=== PATIENT | female | born 1950 | race Caucasian/White ===

== ENCOUNTER → 2017-01-28 | Outpatient (CLI) | payer BC, MEDICARE | END | disposition home or self-care (01) | LOC: LABPAT 14:18 | PROVIDERS: ATTEND Orthopaedic Surgery Sports Medicine | DX: Z01.812 Encounter for preprocedural laboratory examination (principal) | CPT/HCPCS: 87070 ==

== ENCOUNTER → 2017-02-03 | Outpatient (CLI) | payer BC, MEDICARE ==
[2017-02-03 11:24] LABS: EKG EKG PERFORMED
[2017-02-03 11:53] LABS: Basophils % (A) 0 %; CH 31.3; CHCM 34.1; Eosinophils # (A) 0.1 k/uL (0-0.7); Eosinophils % (A) 2 %; HCT 41.3 % (34.0-46.0); HDW 2.63; HGB 13.6 gm/dL (11.4-16.0); Luc # (Auto) 0.13; Luc % (Auto) 3; Lymphocytes % (A) 23 %; MCH 30.4 pg (25.0-35.0); MCV 92.2 fL (80.0-100.0); Mean Platelet Volume 7.4; Monocytes # (A) 0.3 k/uL (0-1.0); Monocytes % (A) 8 %; Neutrophils # (A) 2.7 k/uL (1.3-7.7); Neutrophils % (A) 64 %; RBC 4.48 m/uL (3.80-5.40); RDW 12.3 % (11.5-15.5); WBC 4.3 k/uL (3.8-10.6); WBC (Perox) 4.32
[2017-02-03 12:05] LABS: ALT 33 U/L (9-52); AST 23 U/L (14-36); Alkaline Phosphatase 94 U/L (38-126); Anion Gap 11 mmol/L; Blood Urea Nitrogen 15 mg/dL (7-17); Calcium 10.4 mg/dL (8.4-10.2); Carbon Dioxide 28 mmol/L (22-30); Chloride 103 mmol/L (98-107); Glucose 111 mg/dL (74-99); Non-African American GFR(MDRD) >60 (>60 ml/min/1.73 sqM); Potassium 4.5 mmol/L (3.5-5.1); Sodium 142 mmol/L (137-145); Total Bilirubin 0.4 mg/dL (0.2-1.3); Total Protein 7.4 g/dL (6.3-8.2)
[2017-02-03 12:17] LABS: Appearance,Urine Clear (Clear); Bilirubin,Urine Negative (Negative); Glucose,Urine (UA) Negative (Negative); Ketones,Urine Negative (Negative); Leukocyte Esterase,Urine Trace (Negative); Mucus,Urine Rare /hpf; Nitrite,Urine Negative (Negative); PH, Urine 5.5 (5.0-8.0); Particle Count 1172; Protein,Urine Negative (Negative); Specific Gravity,Urine 1.012 (1.001-1.035); Squamous Epithelial Cell,Urine <1 /hpf (0-4); UA Billing (MACRO vs. MICRO) MICRO; Urobilinogen,Urine <2.0 mg/dL (<2.0); WBC,Urine 2 /hpf (0-5)
[2017-02-03 12:21] LABS: Partial Thromboplastin Time 24.6 sec (22.0-30.0); Prothrombin Time 10.3 sec (9.0-12.0)
== END | disposition home or self-care (01) ==
LOC: LABPAT 11:15
PROVIDERS: ATTEND Orthopaedic Surgery Sports Medicine
DX: Z01.818 Encounter for other preprocedural examination (principal)
CPT/HCPCS: 31623; 31624; 80053; 81001; 85025; 85610; 85730; 87070; 87077; 87102; 87116; 87186; 87205; 87206; 87252; 87496; 87498; 87502; 87529; 87798; 88104; 88108; 88305; 93005; 94640

== ENCOUNTER 2017-02-11 07:49 | Inpatient (IN) | payer BC, MEDICARE ==
[2017-02-03 15:24] VITALS: BMI 23.1
[~2017-02-11 07:49] MED LIST: ACETAMINOPHEN TAB 500 MG TAB PO ONE; DEXAMETHASONE SOD PHOSPHATE 10 MG/ML 1 ML VIAL IV ONE; HYDROmorphone 1 MG/ML 1 ML SYRINGE IVP PRN; MELOXICAM 7.5 MG TAB PO ONE; ONDANSETRON 4 MG/2 ML VIAL IVP ONE; TRANEXAMIC ACID 1,000 MG in SODIUM CHLORIDE 0.9% 100 ML IVPB ONE; ceFAZolin 2 GM in SODIUM CHLORIDE 0.9% 100 ML IVPB ONE
[2017-02-11] MEDS ORDERED: ROPIVACAINE 246.25 MG, EPINEPHrine 0.5 MG, KETOROLAC 30 MG, cloNIDine HCL/PF 80 MCG, WA... MISCELLANE ONE ×5 (08:59)
[2017-02-11] MEDS ORDERED: LIDOCAINE 1% 20 ML VIAL (10MG/ML) FOR IV START INTRADERMA ONE (12:22)
[2017-02-11] MEDS: LACTATED RINGERS 1,000 ML IV SCH ×3 (12:22→21:41)
[2017-02-11 12:23] LABS: Glucose,Whole Blood 103 mg/dL (75-99)
[2017-02-11 12:55] LABS: Appearance,Urine Cloudy (Clear); Bilirubin,Urine Negative (Negative); Glucose,Urine (UA) Negative (Negative); Ketones,Urine Negative (Negative); Leukocyte Esterase,Urine Moderate (Negative); Mucus,Urine Rare /hpf; Nitrite,Urine Negative (Negative); PH, Urine 6.5 (5.0-8.0); Particle Count 1825; Protein,Urine Negative (Negative); RBC,Urine 1 /hpf (0-5); Specific Gravity,Urine 1.015 (1.001-1.035); Squamous Epithelial Cell,Urine 3 /hpf (0-4); UA Billing (MACRO vs. MICRO) MICRO; Urobilinogen,Urine <2.0 mg/dL (<2.0); WBC,Urine 6 /hpf (0-5)
[2017-02-11] MEDS ORDERED: MIDAZOLAM 2 MG/2 ML VIAL IVP ONE (13:04)
[2017-02-11] MEDS ORDERED: PHENYLEPHRINE-0.9% NACL SYG 1 MG/10 ML SYRINGE ONE (13:45)
[2017-02-11] MEDS ORDERED: fentaNYL (PF) 50 MCG/ML 2 ML AMP ONE (13:45)
[2017-02-11] MEDS ORDERED: MORPHINE SULFATE (PF) 0.3 MG/0.3 ML SYR ONE (13:45)
[2017-02-11] MEDS ORDERED: ePHEDrine 50 MG/ML 1 ML AMP ONE (13:45)
[2017-02-11] MEDS ORDERED: PROPOFOL 10 MG/ML 20 ML VIAL IV ONE (13:45)
[2017-02-11] MEDS ORDERED: MIDAZOLAM 2 MG/2 ML VIAL ONE (13:45)
[2017-02-11] MEDS ORDERED: HYDROmorphone 1 MG/ML 1 ML SYRINGE IVP PRN ×3 (13:47)
[2017-02-11] MEDS ORDERED: ACETAMINOPHEN TAB 325 MG TAB PO PRN (13:47)
[2017-02-11] MEDS ORDERED: TEMAZEPAM 15 MG CAP PO PRN (13:47)
[2017-02-11] MEDS ORDERED: hydrOXYzine PAMOATE 25 MG CAP PO PRN (13:47)
[2017-02-11] MEDS ORDERED: NALOXONE 0.4 MG/ML 1 ML VIAL IV PRN ×2 (13:47→15:33)
[2017-02-11] MEDS ORDERED: BISACODYL 10 MG SUPP RECTAL PRN (13:47)
[2017-02-11] MEDS ORDERED: NA PHOS,M-B/NA PHOS,DI-BA 133 ML ENEMA RECTAL PRN (13:47)
[2017-02-11] MEDS ORDERED: DIAZEPAM 5 MG TAB PO PRN (13:47)
[2017-02-11] MEDS ORDERED: ONDANSETRON 4 MG/2 ML VIAL IVP PRN (13:47)
[2017-02-11] MEDS ORDERED: MAGNESIUM HYDROXIDE 2,400 MG/10 ML CUP PO PRN (13:47)
[2017-02-11] MEDS ORDERED: HYDROcodone/APAP 7.5-325MG 1 EACH TAB PO PRN ×2 (13:47)
[2017-02-11] MEDS ORDERED: traMADol 50 MG TAB PO PRN (13:47)
[2017-02-11] MEDS ORDERED: ceFAZolin 3,000 MG in SODIUM CHLORIDE 0.9% IRRIGATIO 3,000 ML IRRIGATION ONE (14:20)
[2017-02-11] MEDS ORDERED: LACTATED RINGERS 1,000 ML IV ONE (14:42)
[2017-02-11] MEDS ORDERED: MORPHINE SULFATE 4 MG/ML SYRINGE IVP PRN (15:33)
[2017-02-11] MEDS ORDERED: diphenhydrAMINE 50 MG/ML 1 ML VIAL IVP PRN (15:33)
--- NOTE | 2017-02-11 15:53 | XR ---
EXAMINATION TYPE: XR knee limited LT DATE OF EXAM: 02/11/2017 3:49 PM COMPARISON: NONE TECHNIQUE: Two view submitted HISTORY: Post op FINDINGS: There is a prosthetic knee in near anatomic alignment. There is soft tissue edema and emphysema. IMPRESSION: 1. Postoperative change. Appears in near-anatomic alignment
[2017-02-11 17:07] LABS: Glucose,Whole Blood 144 mg/dL (75-99)
[2017-02-11] MEDS ORDERED: MORPHINE SULFATE 2 MG/ML SYRINGE IVP PRN (19:00)
[2017-02-11] MEDS ORDERED: SENNOSIDES-DOCUSATE SODIUM 1 EACH TAB PO SCH (21:00)
[2017-02-11] MEDS: ceFAZolin 2 GM in SODIUM CHLORIDE 0.9% 100 ML IVPB SCH (22:13)
[2017-02-11] MEDS: ASPIRIN 325 MG TAB PO SCH (22:13)
[2017-02-12 00:14] LABS: Glucose,Whole Blood 137 mg/dL (75-99)
[2017-02-12] MEDS: NALBUPHINE 10 MG/ML AMPUL IV PRN ×2 (00:47→05:55)
[2017-02-12] MEDS: LACTATED RINGERS 1,000 ML IV SCH ×3 (00:47→05:54)
[2017-02-12] MEDS: ceFAZolin 2 GM in SODIUM CHLORIDE 0.9% 100 ML IVPB SCH (05:01)
[2017-02-12 07:32] LABS: Basophils % (A) 0 %; CH 31.5; CHCM 34.5; Eosinophils % (A) 0 %; HDW 2.58; Luc # (Auto) 0.12; Luc % (Auto) 1; Lymphocytes # (A) 0.9 k/uL (1.0-4.8); Lymphocytes % (A) 9 %; MCH 30.7 pg (25.0-35.0); MCHC 33.6 g/dL (31.0-37.0); MCV 91.6 fL (80.0-100.0); Mean Platelet Volume 8.6; Monocytes # (A) 0.5 k/uL (0-1.0); Monocytes % (A) 5 %; Neutrophils # (A) 8.4 k/uL (1.3-7.7); Neutrophils % (A) 84 %; RBC 3.38 m/uL (3.80-5.40); RDW 12.4 % (11.5-15.5); WBC (Perox) 10.45
[2017-02-12] MEDS: ASPIRIN 325 MG TAB PO SCH (07:35)
--- NOTE | 2017-02-12 07:43 | OP ---
DATE OF SERVICE: 02/11/2017 SURGEON: QUAN REDMAN MD QUANTITATIVE SOFTWARE ENGINEER: Yvon Paul PA-C. PREOPERATIVE DIAGNOSIS: Left knee osteoarthrosis. POSTOPERATIVE DIAGNOSIS: Left knee osteoarthrosis. OPERATION: Left total knee arthroplasty. ANESTHESIA: Spinal with sedation. ESTIMATED BLOOD LOSS: 100 mL SPECIMENS REMOVED: COMPLICATIONS: None apparent. TOURNIQUET TIME: 45 minutes at 250 mmHg. DRAINS: None. DISPOSITION: Postanesthesia care unit. OPERATIVE FINDINGS: INDICATIONS: Peg is a 66-year-old female with long-standing history of left knee pain. History and physical examination are consistent with advanced left knee osteoarthrosis. She has been through a significant nonoperative management up to this point. Further treatment options were discussed and she decided to go forward with left total knee arthroplasty. The risks of the procedure were discussed with her in detail. These risks include, but are not limited to risk of infection, nerve damage, bleeding, pain, and a risk of deep vein thrombosis, which could lead to fatal pulmonary embolism. There is also a risk of loosening of the implant, which could require revision operation. Patient understands these risks. All of her questions were answered to her satisfaction. Appropriate informed consent was obtained. DESCRIPTION OF THE PROCEDURE: The patient was identified in the preoperative holding area. Surgical site was marked by both the patient and myself. She was given 2 grams of Ancef IV for prophylactic purposes. She was then transferred to the operative suite where she was placed supine on the operating room table. Spinal anesthetic was then administered and dosed by the anesthesia department without apparent complication. Examination under anesthesia was then performed. She had full extension. She had 110 degrees of flexion. The medial collateral ligament, lateral collateral ligament and posterior cruciate ligaments were stable. Tourniquet was then placed high on the left upper thigh, well padded in preparation for surgery. The patient's left lower extremity then prepped and draped in the usual sterile fashion. Standard surgical pause was then undertaken to ensure that were operating on the correct site and that appropriate preoperative antibiotics had been given. All staff in the room were in agreement and we proceeded. The outlines of the patella were then marked with a surgical pen. A planned 12 cm vertical incision centered of the patella was marked with a surgical pen. The leg was then exsanguinated with an Esmarch dressing. The knee was then flexed and the tourniquet inflated to 250 mmHg. Total tourniquet time for the procedure was 45 minutes. Incision was then made with 10 blade scalpel. The dissection was carried down sharply to the overlying fascia. Great care was taken to minimize skin flaps. The knee was then exposed using a standard medial parapatellar approach. Small cuff of quadriceps tendon was left for suturing. She was in a bit of varus preoperatively. A standard medial release was then made. Superficial medial collateral ligament was dissected off the bone around to the posterior aspect of the proximal tibia. The medial meniscus was then excised as well. The lateral meniscus was also released anteriorly. The leg was then externally rotated. The patella was everted and the knee was flexed. Retractors were then placed to protect the collateral ligaments. I then proceeded to remove the infrapatellar fat pad. This was excised sharply tangentially with the fibers of the patellar tendon. I then proceeded to remove the peripheral osteophytes. This was done with rongeur. I then proceeded with distal femoral resection. She did have near full extension. A planned 9 mm resection was done. The femoral canal was then entered in the midline of the femur approximately 10 mm anterior to the origin of the posterior cruciate ligament. The magdalena was then advanced down the center of the femur and the magdalena placed intramedullary. Based on preoperative radiographs, the angle between the anatomic and mechanical axis of the femur was approximately 4 to 5 degrees. The valgus angle of distal femoral cutting guide was then set at 4 degrees for left knee. The distal femoral cutting guide was then advanced over the intramedullary magdalena. This was seated firmly against the femur. I then, as mentioned, planned to take 9 mm off the distal femur. The cutting block was then secured onto the femur with pins. The jig was then removed and the distal femoral cut was made through the slot of the block. The pins then removed and the distal femoral cutting block was removed. The accuracy of the distal femoral cuts was checked with 2 flat bars. I then proceeded with femoral sizing. The posterior referencing sizing guide was held firmly against the resected distal surface of the femur. Posterior condyles were resting on the posterior plane of the guide. The sizing stylus was then placed on the anterior femur. The size was measured as size 5. I then assessed for femoral rotation. Plan was for 3 degrees of external rotation. 3 degrees of external rotation was placed onto the jig. These holes were then marked. I then confirmed the rotation by 3 separate methods. This was done using epicondylar axis as well as Whitesides line and posterior referencing. It was deemed that the external rotation was proper. I then went forward with placing the femoral cutting block. This was placed over the previously placed pinholes. Yusuf wing was then placed onto the anterior slots to ensure that we would not notch the anterior femur with the anterior femoral cut. I then proceeded with the anterior femoral cut. This was flush with the anterior cortex of the femur. Posterior cuts were then made followed by the anterior chamfer cut and the posterior chamfer cut. The cutting block was then removed. Throughout the resection, the collateral ligaments were protected with retractors. I then placed a trial 5 femur. It fit very nice medial to lateral and fit flush with the distal end of the femur. The drill holes were then made. I then proceeded with the tibial cutter. I planned for a cruciate-retaining knee. Davilla guide was then placed and set for varus valgus and for slope. Height was set for an approximately 2 mm resection from the medial tibial plateau, which was the lower side. I was happy with the alignment and the amount of resection. The cutting block was then pinned to the proximal tibia. The alignment magdalena was removed and the proximal tibia was resected with the reciprocating saw. Again this was done with retractors, protecting the collateral ligaments as well as posterior cruciate ligament. I then proceeded to evaluate the flexion and extension gaps. A 10 mm block was placed. The flexion-extension gaps were equal. I then proceeded with resection of the posterior osteophytes. She had very minimal posterior osteophytes. This was done using curved osteotome. This resected the posterior osteophytes and posterior capsule stripping was also done off the posterior aspect of the femur at this time. The osteophytes were removed. I then proceeded with resection of the patella. The thickness of the patella was measured using caliper. Thickness was 22 mm. The thickness of the anticipated patellar dome was then taken into account. Resection was then performed and confirmed to be equal in 4 quadrants using the caliper; approximately 14 mm of bone remained after the resection. A 29 x 8 standard patellar trial was then placed. The holes were then drilled and trial was then placed. I then proceeded with sizing tibial plate. A size D tibial plate fit very nicely. I then placed trial femur, tibial tray and the patellar button. A 10 mm trial tibial insert was also placed. The components fit very nicely. She had full flexion and extension. The extension and flexion gaps were equal and stable to both varus and valgus stress. The patella tracked appropriately. Tibial tray rotation was marked with a Bovie. This was externally rotated properly. I then proceeded with tibial preparation. I first drilled femoral holes and removed femoral component. Tibial tray was then set for proper external rotation as well as mediolateral placement onto the tibia. It was then pinned into place. I then proceeded with punching the keel. I decided to proceed with cementing of all of our components. The knee was thoroughly irrigated with sterile saline solution via pulse lavage. The lateral geniculate artery was identified and cauterized. All blood was removed from the bone of the tibia, femur and patella with pulse lavage. I then proceeded with cementing. Two packs of antibiotic bone cement were prepared on the back table by the assistant professor surgical technology. I then proceeded with cementing the tibia first. The size impacted in the keel as well as deeply seated into bone. A second coat of cement was then placed. Tibia was then impacted into place. Excess cement was removed with Tor's and jokers. I then proceeded with cementing of femoral component. The femoral component was also cemented using standard technique. Excess cement was removed. A 10 mm insert was placed into the knee appears. It was brought into full extension a constant axial load placed until the cement had hardened. The patellar component was then cemented. This was held firmly with the compressive device until the cement had dried. When the cement had dried, the knee was taken out of extension. All excess cement was removed from around the prosthesis. I then trialed the knee with a 10 mm insert. Flexion-extension gaps were appropriate I then trialed a 12 mm insert and a 13 mm insert. The flexion-extension gaps felt much better. The knee was stable with 13 mm insert. It came into full extension. I decided to go forward with 13 mm cross-linked cruciate-retaining tibial insert. Polyethylene was then placed onto the tibial tray and then the then locked into place. The knee was then reduced. The knee was again further irrigated with sterile saline solution with antibiotic added. The tourniquet was then deflated. Total tourniquet pulled tourniquet time for the case was 45 minutes at 250 mmHg. Final components were Felipa persona size 5, cruciate-retaining femoral component, a size D tibial tray and a 13 mm medial congruent cruciate retaining polyethylene insert and a 29 x 8 mm patella. I then proceeded with closure. Again, the knee was thoroughly irrigated. The quadriceps tendon and the medial retinaculum were reapproximated with #2 Ethibond suture. The extensor mechanism was then closed with running #2 Quill suture. Subcutaneous tissues were then closed with 2-0 Vicryl interrupted suture. The skin was closed with a running 3-0 Quill suture. Dermabond was applied to the incision. Sterile compressive dressings were then applied. All sponge and needle counts were deemed correct prior to closure. The patient tolerated the procedure without apparent complication. She was transferred to recovery room in stable condition.
[2017-02-12 07:45] LABS: Glucose,Whole Blood 111 mg/dL (75-99)
[2017-02-12 07:47] LABS: HGB 10.4 gm/dL (11.4-16.0)
[2017-02-12 08:28] VITALS: BP 105/64; PULSE 83; RESP 15; TEMP 98.7
--- NOTE | 2017-02-12 09:15 | P.PN ---
Subjective Principal diagnosis: Status post left total knee arthroplasty Patient is a pleasant 66-year-old female seen at bedside this morning. She's postop day #1 from left total knee arthroplasty performed by Dr. Anderson. She's doing well. Pain is controlled. She denies new complaints. She denies numbness or tingling or calf pain. Review of systems is negative for fever, chills, chest pain, shortness breath, nausea, vomiting, dizziness, headaches or other. Objective - Vital Signs Vital signs: Vital Signs Temp 98.7 F 02/12/17 07:00 Pulse 83 02/12/17 07:00 Resp 15 02/12/17 07:00 BP 105/64 02/12/17 07:00 Pulse Ox 95 02/12/17 08:00 Intake & Output 02/11/17 02/12/17 02/12/17 18:59 06:59 18:59 Intake Total 1651 300 Output Total 220 300 500 Balance 1431 0 -500 Weight 61.235 kg Intake: IV 1651 Oral 300 Output: Urine 120 300 500 Uretheral (Hobbs) 300 500 Estimated Blood Loss 100 Other: Voiding Method Indwelling Catheter Indwelling Catheter Indwelling Catheter - Exam Surgical wound is benign. There is no active bleeding, dehiscence or drainage. Active motor is intact at the hip, knee, ankle, foot and toes. Sensation to light touch is intact throughout the left lower extremity. Calf is soft and nontender. 2+ dorsalis pedis pulses and less than 2 second cap refill is present. - Constitutional General appearance: Present: no acute distress - Psychiatric Psychiatric: Present: A&O x's 3, appropriate affect, intact judgment & insight - Labs CBC & Chem 7: 02/12/17 07:04 Labs: Abnormal Lab Results - Last 24 Hours (Table) 02/11/17 02/11/17 02/11/17 Range/Units 12:02 12:17 16:47 RBC (3.80-5.40) m/uL Hgb (11.4-16.0) gm/dL Hct (34.0-46.0) % Neutrophils # (1.3-7.7) k/uL Lymphocytes # (1.0-4.8) k/uL POC Glucose (mg/dL) 103 H 144 H (75-99) mg/dL Urine Appearance Cloudy H (Clear) Ur Leukocyte Esterase Moderate H (Negative) Urine WBC 6 H (0-5) /hpf Urine Mucus Rare H (None) /hpf 02/12/17 02/12/17 02/12/17 Range/Units 00:03 07:04 07:42 RBC 3.38 L (3.80-5.40) m/uL Hgb 10.4 L D (11.4-16.0) gm/dL Hct 31.0 L (34.0-46.0) % Neutrophils # 8.4 H (1.3-7.7) k/uL Lymphocytes # 0.9 L (1.0-4.8) k/uL POC Glucose (mg/dL) 137 H 111 H (75-99) mg/dL Urine Appearance (Clear) Ur Leukocyte Esterase (Negative) Urine WBC (0-5) /hpf Urine Mucus (None) /hpf Assessment and Plan (1) Osteoarthritis of left knee Narrative/Plan: Patient is doing well postop day #1. She may be discharged home later today if she passes physical therapy. She will continue with routine postop orthopedic protocol including pain management, wound care, physical therapy, DVT prophylaxis and medical management. Status: Acute Time with Patient: Less than 30
--- NOTE | 2017-02-12 09:21 | P.DS ---
Providers Date of admission: 02/11/17 11:33 Expected date of discharge: 02/12/17 Attending physician: Thierno Anderson Consults: 02/11/17 13:47 Consult Physician Routine Consulting Provider: Jose Cruz Leiva Consult Reason/Comments: post op medical management Do you want consulting provider notified?: Yes Primary care physician: Stated None - Discharge Diagnosis(es) (1) Osteoarthritis of left knee Patient was admitted to the OR yesterday, 02/11/2017 to undergo left total knee arthroplasty performed forearm by Dr. Anderson. She had failed conservative measures as an outpatient and desired to proceed with elective surgery after given informed consent. She underwent the above procedure which she tolerated well without complication. Her postoperative hospital course has remained without complication. On day of discharge she is afebrile, vital signs are stable, wound is benign, labs within acceptable ranges, she is tolerating by mouth meds and diet, she is voiding without difficulty, she is passing flatus, she is neurovascularly intact, her calf is soft and nontender, her abdomen is soft and nontender, she is denying new complaints, she is denying abdominal pain or calf pain. Review of systems is negative for fever, chills, chest pain , shortness breath, nausea, vomiting, dizziness, headaches, rashes, bleeding or other. Current Visit: Yes Status: Acute Priority: Medium Procedures: Left total knee arthroplasty Patient Condition at Discharge: Good Plan - Discharge Summary New Discharge Prescriptions: Aspirin 325 mg PO BID #60 tab HYDROcodone/APAP 7.5-325MG [[place] 7.5-325] 1 - 2 each PO Q6HR PRN #90 tab PRN Reason: Pain Discharge Medication List Acetaminophen/Diphenhydramine [Tylenol PM 500-25mg] 1 tab PO HS PRN 02/03/17 [ History] Aspirin 162 mg PO HS 02/03/17 [History] Atenolol [Tenormin] 25 mg PO DAILY 02/03/17 [History] Atorvastatin [Lipitor] 10 mg PO DAILY 02/03/17 [History] Cyanocobalamin (Vitamin B-12) [Vitamin B-12] 2,000 mcg PO DAILY 02/03/17 [ History] Gluc/Mook-MSM#1/C/Jann/Mathew/Bor [Glucosamine-Chondroitin Tablet] 1 tab PO BID [History] Krill Oil 500 mg PO DAILY 02/03/17 [History] Ranitidine HCl 150 mg PO BID 02/03/17 [History] [place]'s Wort 300 mg PO DAILY 02/03/17 [History] Ubidecarenone [Co Q-10] 200 mg PO DAILY 02/03/17 [History] Ubidecarenone [Co Q-10] 200 mg PO DAILY 02/03/17 [History] Valsartan [Diovan] 40 mg PO DAILY 02/03/17 [History] cloNIDine HCL [Catapres] 0.1 mg PO BID 02/03/17 [History] Cholecalciferol [Vitamin D3] 2,000 unit PO DAILY 02/11/17 [History] Sulfamethox-Tmp 800-160Mg [Bactrim DS 800-160 mg] 1 tab PO Q12H 02/11/17 [ History] Aspirin 325 mg PO BID #60 tab 02/12/17 [Rx] HYDROcodone/APAP 7.5-325MG [[place] 7.5-325] 1 - 2 each PO Q6HR PRN #90 tab [Rx] Follow up Appointment(s)/Referral(s): Thierno Anderson MD [STAFF PHYSICIAN] - 2 Weeks Activity/Diet/Wound Care/Special Instructions: Keep wound clean and dry Take meds as directed Weight-bear as tolerated May shower in 72 hours Follow-up with Dr. Anderson in office [phone] Discharge Disposition: HOME WITH HOME HEALTH SERVICES
--- NOTE | 2017-02-12 10:21 | P.PN ---
Subjective status post duramorph day 1; doing ok; no headache Objective - Vital Signs Vital signs: Vital Signs Temp 98.7 F 02/12/17 07:00 Pulse 83 02/12/17 07:00 Resp 15 02/12/17 07:00 BP 105/64 02/12/17 07:00 Pulse Ox 95 02/12/17 08:00 Intake & Output 02/11/17 02/12/17 02/12/17 18:59 06:59 18:59 Intake Total 1651 300 Output Total 220 300 500 Balance 1431 0 -500 Weight 61.235 kg Intake: IV 1651 Oral 300 Output: Urine 120 300 500 Uretheral (Hobbs) 300 500 Estimated Blood Loss 100 Other: Voiding Method Indwelling Catheter Indwelling Catheter Indwelling Catheter - Labs CBC & Chem 7: 02/12/17 07:04 Labs: Abnormal Lab Results - Last 24 Hours (Table) 02/11/17 02/11/17 02/11/17 Range/Units 12:02 12:17 16:47 RBC (3.80-5.40) m/uL Hgb (11.4-16.0) gm/dL Hct (34.0-46.0) % Neutrophils # (1.3-7.7) k/uL Lymphocytes # (1.0-4.8) k/uL POC Glucose (mg/dL) 103 H 144 H (75-99) mg/dL Urine Appearance Cloudy H (Clear) Ur Leukocyte Esterase Moderate H (Negative) Urine WBC 6 H (0-5) /hpf Urine Mucus Rare H (None) /hpf 02/12/17 02/12/17 02/12/17 Range/Units 00:03 07:04 07:42 RBC 3.38 L (3.80-5.40) m/uL Hgb 10.4 L D (11.4-16.0) gm/dL Hct 31.0 L (34.0-46.0) % Neutrophils # 8.4 H (1.3-7.7) k/uL Lymphocytes # 0.9 L (1.0-4.8) k/uL POC Glucose (mg/dL) 137 H 111 H (75-99) mg/dL Urine Appearance (Clear) Ur Leukocyte Esterase (Negative) Urine WBC (0-5) /hpf Urine Mucus (None) /hpf
[2017-02-12 11:59] LABS: Glucose,Whole Blood 106 mg/dL (75-99)
[2017-02-12] MEDS ORDERED: MULTIVITAMINS, THERA 1 EACH TAB PO SCH (12:00)
--- NOTE | 2017-02-12 18:27 | CONS ---
DATE OF CONSULTATION: REASON FOR CONSULTATION: Recommendations regarding antihypertensive medications and perioperative hypertension. Patient had successful surgery, left knee arthroplasty. Patient is clinically doing well and is being discharged today. Patient denied any fever or chills. Patient denied any nausea, vomiting, lightheadedness. Patient has been hypotensive since yesterday. Patient did not receive any antihypertensives, in spite of which her blood pressure remained low; systolics of 90s. Patient's heart rate remains stable. Patient is on clonidine, atenolol as well as Lisinopril. Part of her hypotension is probably related to her surgery. I recommended her to discontinue clonidine, follow with Dr. Castle and recheck the blood pressure twice a day at home and take it to Dr. Castle to see if she will actually need clonidine. There is a concern about ( ) discontinuation of clonidine. Since her blood pressure is so low, I cannot continue her clonidine. If her blood pressure or heart rate goes up, patient was requested to call her primary care physician. REVIEW OF SYSTEMS: CONSTITUTIONAL: No fever, no malaise, no fatigue. HEENT: No recent visual problems or hearing problems. Denied any sore throat. CARDIOVASCULAR: No chest pain, orthopnea, PND, no palpitations, no syncope. PULMONARY: No shortness of breath, no cough, no hemoptysis. GASTROINTESTINAL: No diarrhea, no nausea, no vomiting, no abdominal pain. Normoactive bowel sounds. NEUROLOGICAL: No headaches, no weakness, no numbness. HEMATOLOGICAL: Denies any bleeding or petechiae. GENITOURINARY: Denies any burning micturition, frequency, or urgency. MUSCULOSKELETAL/RHEUMATOLOGICAL: Denies any joint pain, swelling, or any muscle pain. ENDOCRINE: Denies any polyuria or polydipsia. The rest of the 14 point review of systems is negative. PAST MEDICAL HISTORY: 1. Diabetes mellitus. 2. Gastroesophageal reflux disease. 3. Hypertension. 4. Hyperlipidemia. 5. Osteoarthritis. 6. Basal cell skin cancer. 7. Appendectomy. 8. Hysterectomy. 9. Tubal ligation surgery. SOCIAL HISTORY: Denied any smoking, alcohol abuse or any drug abuse. FAMILY HISTORY: Non-Hodgkin's lymphoma and lung cancer in the family. PHYSICAL EXAMINATION: VITAL SIGNS: Temperature 98.7, pulse 83, respiratory rate 15. Blood pressure is 104/64 now. Saturating at 95% on room air. GENERAL: The patient is alert and oriented x3, not in any acute distress. Well developed, well nourished. HEENT: Pupils are round and equally reacting to light. EOMI. No scleral icterus. No conjunctival pallor. Normocephalic, atraumatic. No pharyngeal erythema. No thyromegaly. CARDIOVASCULAR: S1 and S2 present. No murmurs, rubs, or gallops. PULMONARY: Chest is clear to auscultation, no wheezing or crackles. ABDOMEN: Soft, nontender, nondistended, normoactive bowel sounds. No palpable organomegaly. MUSCULOSKELETAL: No joint swelling or deformity. EXTREMITIES: No cyanosis, clubbing, or pedal edema. NEUROLOGICAL: Gross neurological examination did not reveal any focal deficits. SKIN: No rashes. Home medications include: 1. Valsartan. 2. Ubidecarenone. 3. Bactrim, which she is using for UTI, but patient does not have any UTI symptoms. Patient most probably has symptomatic bacteriuria, which does not warrant antibiotics. Patient has already taken about 4 days of antibiotics. 4. Ranitidine. 5. Cyanocobalamin. 6. Cholecalciferol. 7. Atorvastatin. 8. Atenolol. 9. Aspirin. 10. Hydrocodone/acetaminophen. ASSESSMENT AND PLAN: 1. Hypertension. Management as mentioned in the interval history. Discontinue clonidine. Rest of the medications can be continued. Patient can be discharged from my perspective. Patient needs to check her blood pressure closely at home. 2. Asymptomatic bacteriuria, which does not warrant any antibiotics. Anyways, patient received 4 days of Bactrim. She can discontinue the antibiotics. I do not have any basic metabolic profile available at this point of time. 3. Gastroesophageal reflux disease. 4. As per the history, patient has diabetes mellitus. I do not have any hemoglobin A1C available, but patient is not on any oral hypoglycemic agents. 5. Hyperlipidemia. DVT prophylaxis as per Orthopedic Surgery. Thank you for letting me participate in the patient's care. Patient can be discharged from my perspective. Medication reconciliation was reviewed. Aspirin dosing was left to primary service. Patient can be discharged from medical perspective.
== END 2017-02-12 13:21 | disposition home health service (06) | DRG 470 ==
LOC: 2ORMAIN 11:33 → 3SUR 15:46
PROVIDERS: ADMIT Orthopaedic Surgery Sports Medicine; ATTEND Orthopaedic Surgery Sports Medicine
PROC: 0SRD0J9 Replacement of Left Knee Joint with Synthetic Substitute, Cemented, Open Approach (ICD-10-PCS; principal; 2017-02-11 13:25)
DX: M17.0 Bilateral primary osteoarthritis of knee (principal); I10 Essential (primary) hypertension; N39.0 Urinary tract infection, site not specified; K21.9 Gastro-esophageal reflux disease without esophagitis; E11.9 Type 2 diabetes mellitus without complications; E78.5 Hyperlipidemia, unspecified; Z85.828 Personal history of other malignant neoplasm of skin; Z79.82 Long term (current) use of aspirin; Z79.899 Other long term (current) drug therapy
CPT/HCPCS: 81001; 85025; 88300

== ENCOUNTER → 2021-12-04 | Outpatient (CLI) | payer MEDICARE ==
--- NOTE | 2021-12-05 11:07 | MM ---
Reason for exam: additional evaluation requested from prior study. Last mammogram was performed 13 years and 8 months ago. History: Patient is postmenopausal and history of other cancer. Physical Findings: Nurse did not find any significant physical abnormalities on exam. MG 3D Diag Mammo W/Cad ANIRUDH Bilateral CC and MLO view(s) were taken. Prior study comparison: May 29, 2021, mammogram, performed at [facility]. March 29, 2019, mammogram, performed at [facility]. The breast tissue is heterogeneously dense. This may lower the sensitivity of mammography. There is chronic nodularity in the left breast. No significant new findings when compared with previous films. These results were verbally communicated with the patient and result sheet given to the patient on 12/04/21. ASSESSMENT: Benign, BI-RAD 2 RECOMMENDATION: Routine screening mammogram of both breasts in 1 year.
== END | disposition home or self-care (01) ==
LOC: RADMAMWWP 13:01
PROVIDERS: ATTEND Family Medicine
DX: R92.2 Inconclusive mammogram (principal)
CPT/HCPCS: 77066; G0279; 77062

== ENCOUNTER → 2025-03-17 | Outpatient (CLI) | payer MEDICARE ==
--- NOTE | 2025-03-17 14:14 | MR ---
EXAMINATION TYPE: MR cervical spine wo con DATE OF EXAM: 03/17/2025 2:05 PM COMPARISON: None. CLINICAL INDICATION: Female, 74 years old with history of M54.12 RADICULOPATHY, CERVICAL REGION, Neck stiffness and pain IV Contrast: cc (None if empty) TECHNIQUE: Multiplanar, multisequence images of the cervical spine were acquired without contrast. C2-C3: No evidence for degenerative disc disease. No disc bulge/herniation or protrusion. No Canal stenosis. Foramina are patent bilaterally. C3-C4: No evidence for degenerative disc disease. No disc bulge/herniation or protrusion. No Canal stenosis. Foramina are patent bilaterally. C4-C5: Mild decreased signal along the spine compatible with degenerative disc disease. Mild posterio r disc bulge. No evidence of herniation or protrusion. No central stenosis. Moderate left foraminal e ncroachment secondary to degenerative changes of the cervical apophyseal joints. Minimal anterolisthe sis of the 2 to 3 mm of C4 on C5. C5-C6: Mild decreased signal along the spine compatible with degenerative disc disease. Mild posterio r disc bulge. No evidence of herniation or protrusion. No central stenosis. Foramina are patent bilat erally. C6-C7: Mild decreased signal along the spine compatible with degenerative disc disease. Mild to moder ate Posterior disc bulge. No evidence of herniation or protrusion. No central stenosis. Moderate willie ateral foraminal encroachment. C7-T1: No evidence for degenerative disc disease. No disc bulge/herniation or protrusion. No Canal stenosis. Foramina are patent bilaterally. Cervical segments are intact. There is normal alignment. Cervical spinal cord is of normal signal. Craniovertebral junction relationships are within normal limits. Scattered ventral spondylosis. IMPRESSION: 1. Multilevel degenerative disc disease. 2.varying degrees of disc bulging and foraminal encroachment as outlined above [facility], , 03/17/2025 2:11 PM
== END | disposition home or self-care (01) ==
LOC: RADMRIMAIN 13:29
PROVIDERS: ATTEND Family Medicine
DX: M50.123 Cervical disc disorder at C6-C7 level with radiculopathy (principal)
CPT/HCPCS: 72141